=== PATIENT | female | born 1995 | race Caucasian/White ===

== ENCOUNTER → 2018-04-06 18:40 | Outpatient (CLI) | payer OTHER, SELFPAY ==
[2018-04-06 19:05] LABS: Add Manual Diff / Slide Review NO; Basophils Percent Auto 0.4 % (0-2); Eosinophils Percent Auto 3.8 % (2-4); Hematocrit 36.3 % (36-46); Hemoglobin 12.3 g/dL (12.0-16.0); Lymphocytes Percent Auto 13.2 % (25-40); Mean Corpuscular HGB Conc 33.9 % (30-36); Mean Corpuscular Hemoglobin 30.6 PG (26-34); Mean Corpuscular Volume 90.3 fL (80-100); Monocytes Percent Auto 9.8 % (3-14); Neutrophils Absolute Auto 14100 /uL (3000-5900); Neutrophils Percent Auto 72.8 % (50-75); Platelet Count 363 X10^3/uL (150-400); Red Blood Cell Count 4.02 X10^6/uL (4.0-5.2); Red Cell Distribution Width 12.2 % (11.6-14.8); White Blood Cell Count 19.4 X10^3/uL (4.5-11.0)
[2018-04-06 19:20] LABS: Monotest Negative (Negative)
== END ==
PROVIDERS: Visit Provider Physician Assistant
DX: J02.9 Acute pharyngitis, unspecified (principal)
CPT/HCPCS: 36415; 85025; 86318

== ENCOUNTER → 2018-04-18 11:31 | Outpatient (CLI) | payer OTHER, SELFPAY ==
--- NOTE | 2018-04-18 11:41 | DI.RAD.S_ITS ---
PROCEDURE: XR SOFT TISSUE NECK INDICATIONS: sore throat resistant to normal abx TECHNIQUE: 2 views of the neck were acquired. COMPARISON: None. FINDINGS: Airway: The airway appears patent. Soft tissues: Prevertebral soft tissues are normal in thickness. The epiglottis and aryepiglottic folds appear normal. No soft tissue gas. Bones: No suspicious bony lesions. Visualized cervical spine is normally aligned. IMPRESSION: No abnormal fluid collection or soft tissue swelling is found. Dictated by: Demetri Crum M.D. on 04/18/2018 at 12:37 Approved by: Demetri Crum M.D. on 04/18/2018 at 12:40
[2018-04-18 12:10] LABS: Add Manual Diff / Slide Review NO; Basophils Percent Auto 1.3 % (0-2); Eosinophils Percent Auto 0.8 % (2-4); Hematocrit 37.3 % (36-46); Hemoglobin 12.9 g/dL (12.0-16.0); Lymphocytes Percent Auto 14.6 % (25-40); Mean Corpuscular HGB Conc 34.6 % (30-36); Mean Corpuscular Hemoglobin 30.8 PG (26-34); Mean Corpuscular Volume 88.9 fL (80-100); Monocytes Percent Auto 7.5 % (3-14); Neutrophils Absolute Auto 13400 /uL (3000-5900); Neutrophils Percent Auto 75.8 % (50-75); Platelet Count 375 X10^3/uL (150-400); Red Cell Distribution Width 12.5 % (11.6-14.8); White Blood Cell Count 17.6 X10^3/uL (4.5-11.0)
== END ==
PROVIDERS: PCP Family Medicine; Visit Provider Physician Assistant
DX: J03.00 Acute streptococcal tonsillitis, unspecified (principal); J35.01 Chronic tonsillitis; J02.9 Acute pharyngitis, unspecified
CPT/HCPCS: 36415; 70360; 85025; 87070; 87077; 87147

== ENCOUNTER → 2019-12-23 15:55 | Outpatient (CLI) | payer OTHER, SELFPAY ==
[2019-12-24 20:01] LABS: COVID19 Sendout Not Detected (Not Detect)
== END ==
PROVIDERS: PCP Physician Assistant Medical; Visit Provider Physician Assistant
DX: Z03.818 Encounter for observation for suspected exposure to other biological agents ruled out (principal)
CPT/HCPCS: 87635

== ENCOUNTER → 2020-04-18 14:07 | Outpatient (CLI) | payer OTHER, SELFPAY ==
[2020-04-18 14:47] LABS: Add Manual Diff / Slide Review NO; Basophils Absolute Auto 100 /uL (0-100); Basophils Percent Auto 0.9 % (0-2); Eosinophils Absolute Auto 300 /uL (0-450); Eosinophils Percent Auto 3.3 % (2-4); Hematocrit 36.6 % (36-46); Hemoglobin 12.5 g/dL (12.0-16.0); Lymphocytes Absolute Auto 2100 /uL (1100-4500); Lymphocytes Percent Auto 27.4 % (25-40); Mean Corpuscular HGB Conc 34.1 % (30-36); Mean Corpuscular Hemoglobin 30.3 PG (26-34); Monocytes Absolute Auto 800 /uL (0-900); Monocytes Percent Auto 10.5 % (3-14); Neutrophils Absolute Auto 4500 /uL (1500-7000); Neutrophils Percent Auto 57.9 % (50-75); Platelet Count 280 X10^3/uL (150-400); Red Blood Cell Count 4.12 X10^6/uL (4.0-5.2); Red Cell Distribution Width 12.4 % (11.6-14.8); White Blood Cell Count 7.7 X10^3/uL (4.5-11.0)
[2020-04-18 14:59] LABS: Alanine Aminotransferase 13 IU/L (<35); Albumin Globulin Ratio 1.3 (1.0-2.8); Alkaline Phosphatase 74 U/L (38-126); Aspartate Aminotransferase 20 IU/L (14-36); BUN Creatinine Ratio 15.9 (6-22); Bilirubin Total 0.3 mg/dL (0.2-1.3); Blood Urea Nitrogen 11 mg/dL (7-17); Calcium 9.1 mg/dL (8.4-10.2); Carbon Dioxide 26 mmol/L (22-32); Chloride 105 mmol/L (98-107); Estimated Glomerular Filt Rate > 60.0 mL/min (>60); Glucose 107 mg/dL (70-100); HEMOLYSIS < 15 (0-50); Potassium 3.5 mmol/L (3.4-5.1); Sodium 135 mmol/L (137-145)
== END ==
PROVIDERS: PCP Physician Assistant Medical; Referring Provider Physician Assistant Medical; Visit Provider Physician Assistant Medical
DX: M25.50 Pain in unspecified joint (principal); R53.83 Other fatigue; R11.0 Nausea
CPT/HCPCS: 36415; 80053; 85025

== ENCOUNTER → 2020-04-18 | Outpatient (CLI) | payer OTHER, SELFPAY | PROVIDERS: PCP Physician Assistant Medical; Referring Provider Internal Medicine; Visit Provider Internal Medicine | DX: Z23 Encounter for immunization (principal) | CPT/HCPCS: 90471; 90686 ==

== ENCOUNTER → 2020-06-23 09:43 | Outpatient (CLI) | payer OTHER, SELFPAY ==
[2020-06-23] MEDS: COVID-19 VACC(MODERNA-1)/PF 100 MCG/0.5 ML VIAL IM (09:53)
== END ==
PROVIDERS: PCP Registered Nurse; Visit Provider Internal Medicine
DX: Z23 Encounter for immunization (principal)
CPT/HCPCS: 0011A; 91301

== ENCOUNTER → 2020-07-01 07:10 | Outpatient (CLI) | payer OTHER, SELFPAY ==
[2020-07-01 08:27] LABS: Add Manual Diff / Slide Review NO; Basophils Absolute Auto 100 /uL (0-100); Basophils Percent Auto 0.9 % (0-2); Eosinophils Absolute Auto 200 /uL (0-450); Eosinophils Percent Auto 2.7 % (2-4); Hematocrit 38.4 % (36-46); Hemoglobin 13.1 g/dL (12.0-16.0); Lymphocytes Absolute Auto 1800 /uL (1100-4500); Lymphocytes Percent Auto 24.6 % (25-40); Mean Corpuscular HGB Conc 34.1 % (30-36); Mean Corpuscular Hemoglobin 30.4 PG (26-34); Monocytes Absolute Auto 600 /uL (0-900); Monocytes Percent Auto 8.6 % (3-14); Neutrophils Absolute Auto 4700 /uL (1500-7000); Neutrophils Percent Auto 63.2 % (50-75); Platelet Count 310 X10^3/uL (150-400); Red Blood Cell Count 4.32 X10^6/uL (4.0-5.2); Red Cell Distribution Width 12.1 % (11.6-14.8); White Blood Cell Count 7.4 X10^3/uL (4.5-11.0)
[2020-07-01 09:26] LABS: Alanine Aminotransferase 13 IU/L (<35); Albumin Globulin Ratio 1.4 (1.0-2.8); Alkaline Phosphatase 82 U/L (38-126); Aspartate Aminotransferase 21 IU/L (14-36); Bilirubin Total 0.2 mg/dL (0.2-1.3); Blood Urea Nitrogen 12 mg/dL (7-17); Carbon Dioxide 25 mmol/L (22-32); Chloride 106 mmol/L (98-107); Cholesterol 181 mg/dL (140-199); Estimated Glomerular Filt Rate > 60.0 mL/min (>60); Globulin 2.9 g/dL (1.7-4.1); Glucose 89 mg/dL (70-100); HDL Cholesterol 63 mg/dL (40-60); HEMOLYSIS < 15 (0-50); LDL Cholesterol Calculated 96 mg/dL (<100); Potassium 4.1 mmol/L (3.4-5.1); Sodium 138 mmol/L (137-145); Total Protein 6.9 g/dL (6.3-8.2); Triglycerides 111 mg/dL (35-150)
[2020-07-01 09:37] LABS: Free T4, Direct Thyroxine 1.08 ng/dL (0.78-2.19)
== END ==
PROVIDERS: PCP Registered Nurse; Referring Provider Registered Nurse; Visit Provider Registered Nurse
DX: Z00.00 Encounter for general adult medical examination without abnormal findings (principal); R53.83 Other fatigue; Z83.49 Family history of other endocrine, nutritional and metabolic diseases
CPT/HCPCS: 36415; 80053; 80061; 84439; 84443; 85025

== ENCOUNTER → 2020-07-20 09:52 | Outpatient (CLI) | payer OTHER, SELFPAY ==
[2020-07-20] MEDS: COVID-19 VACC #2, MRNA(MOD) 100 MCG/0.5 ML VIAL IM (09:54)
== END ==
PROVIDERS: PCP Registered Nurse; Visit Provider Internal Medicine
DX: Z23 Encounter for immunization (principal)
CPT/HCPCS: 0012A; 91301

== ENCOUNTER → 2021-02-22 09:42 | Outpatient (CLI) | payer OTHER, SELFPAY ==
[2021-02-22 10:57] LABS: COVID19 -Nasal RAPID Negative (Negative)
== END ==
PROVIDERS: PCP Family Medicine; Visit Provider Physician Assistant
DX: Z20.822 Contact with and (suspected) exposure to COVID-19 (principal)
CPT/HCPCS: 87635

== ENCOUNTER → 2021-05-19 12:47 | Outpatient (CLI) | payer OTHER, SELFPAY ==
[2021-05-19 14:16] LABS: Progesterone, Total 7.45 ng/mL
== END ==
PROVIDERS: PCP Family Medicine; Referring Provider Specialist; Visit Provider Specialist
DX: N92.6 Irregular menstruation, unspecified (principal)
CPT/HCPCS: 36415; 84144

== ENCOUNTER → 2021-06-20 17:03 | Outpatient (CLI) | payer OTHER, SELFPAY ==
[2021-06-20 18:40] LABS: Progesterone, Total 7.98 ng/mL
== END ==
PROVIDERS: PCP Family Medicine; Referring Provider Specialist; Visit Provider Specialist
DX: N92.6 Irregular menstruation, unspecified (principal)
CPT/HCPCS: 36415; 84144

== ENCOUNTER → 2021-09-01 06:57 | Outpatient (CLI) | payer OTHER, SELFPAY ==
[2021-09-01 08:51] LABS: Glucose Fasting 82 mg/dL (70-100)
[2021-09-01 09:13] LABS: Glucose Tol Interpretation INTERPRETATION
[2021-09-01 09:18] LABS: Glucose 1 Hour 105 mg/dL (70-170)
[2021-09-01 10:14] LABS: Glucose 2 Hour 123 mg/dL (70-140)
[2021-09-03 07:53] LABS: Insulin Level Total 11.3 uIU/mL (2.6-24.9)
== END ==
PROVIDERS: PCP Family Medicine; Referring Provider Specialist; Visit Provider Specialist
DX: E66.9 Obesity, unspecified (principal); N92.6 Irregular menstruation, unspecified
CPT/HCPCS: 36415; 82951; 82952; 83525

== ENCOUNTER → 2022-10-12 13:02 | Outpatient (CLI) | payer OTHER, SELFPAY | PROVIDERS: PCP Physician Assistant; Referring Provider Obstetrics & Gynecology; Visit Provider Obstetrics & Gynecology | DX: Z34.90 Encounter for supervision of normal pregnancy, unspecified, unspecified trimester (principal) | CPT/HCPCS: 36415; 84702 ==

== ENCOUNTER → 2022-10-22 11:13 | Outpatient (CLI) | payer OTHER, SELFPAY ==
--- NOTE | 2022-10-22 11:14 | DI.US.S_ITS ---
PROCEDURE: US OB <= 14 WEEKS FETUS INDICATIONS: DATING OUTSIDE/PRIOR DATING DATA: Last menstrual period (LMP): Unknown. LMP-based estimated date of delivery (MERVIN): Not applicable. First dating scan (date and location): 10/22/22. Estimated date of delivery (MERVIN) from first dating scan: 06/19/23. TECHNIQUE: Real-time scanning was performed of the fetus and maternal pelvic organs, with image documentation. Endovaginal scanning was also performed to better visualize the fetus and maternal ovaries. COMPARISON: None. FINDINGS: Embryo: An intrauterine is present including a single pole with an average crown-rump length of 2.3 mm corresponding to a five week, five day, plus or minus four days gestation. There is detectable cardiac activity in the fetus at a rate of 107 beats per minute. A normal yolk sac is present. Maternal organs: The cervix is closed. Intrauterine gestational sac is fundal and endometrial. Inactive perigestational hemorrhage along the anterior inferior aspect encompasses about 1/3 of the sac circumference. The mean gestational sac diameter is 1.1 cm which corresponds to a five week six day gestation. IMPRESSION: 1. Living pole with a gestational age of five weeks five days and sonographic MERVIN 06/19/23. 2. Closed maternal cervix. 3. Inactive perigestational hemorrhage/implantation bleed. We strive to produce accurate, complete, and clear reports of imaging services. To assist us in improving patient care, this report was composed using standard report templates and voice recognition software. Therefore, it may contain abnormal punctuation, insertions and/or omissions. Occasional wrong-word or sound-alike substitutions may occur. Though we review the report and make efforts to correct it, we do recommend that the report be read carefully in proper context to recognize any text inaccuracies. Dictated by: Leilani Brian M.D. on 10/22/2022 at 17:31 Approved by: Leilani Brian M.D. on 10/22/2022 at 17:35
== END ==
PROVIDERS: PCP Physician Assistant; Referring Provider Obstetrics & Gynecology; Visit Provider Obstetrics & Gynecology
DX: O26.21 Pregnancy care for patient with recurrent pregnancy loss, first trimester (principal); Z3A.01 Less than 8 weeks gestation of pregnancy
CPT/HCPCS: 76801; 76830

== ENCOUNTER → 2022-11-20 11:02 | Outpatient (CLI) | payer OTHER, SELFPAY ==
[2022-11-20 11:50] LABS: Add Manual Diff / Slide Review NO; Basophils Absolute Auto 100 /uL (0-100); Basophils Percent Auto 0.7 % (0-2); Eosinophils Absolute Auto 200 /uL (0-450); Eosinophils Percent Auto 1.7 % (2-4); Hematocrit 37.5 % (36-46); Hemoglobin 13.1 g/dL (12.0-16.0); Lymphocytes Absolute Auto 1600 /uL (1100-4500); Lymphocytes Percent Auto 14.9 % (25-40); Mean Corpuscular Hemoglobin 31.6 PG (26-34); Mean Corpuscular Volume 90.2 fL (80-100); Monocytes Absolute Auto 600 /uL (0-900); Monocytes Percent Auto 5.8 % (3-14); Neutrophils Absolute Auto 8200 /uL (1500-7000); Neutrophils Percent Auto 76.9 % (50-75); Platelet Count 286 X10^3/uL (150-400); Red Blood Cell Count 4.15 X10^6/uL (4.0-5.2); Red Cell Distribution Width 12.4 % (11.6-14.8); White Blood Cell Count 10.7 X10^3/uL (4.5-11.0)
[2022-11-20 12:52] LABS: Hepatitis B Surface Antigen NEGATIVE s/c (NEGATIVE); Rubella Antibody IgG 19.2 IU/mL (>15)
[2022-11-20 13:12] LABS: HIV 1 & 2 Ab/Ag 4th Gen Combo NEGATIVE (NEGATIVE); Hep C Virus Ab w/Reflex Quant NEGATIVE s/c (NEGATIVE)
[2022-11-20 13:24] LABS: Free T4, Direct Thyroxine 1.07 ng/dL (0.78-2.19)
[2022-11-20 13:38] LABS: Thyroid Stimulating Hormone 1.12 uIU/mL (0.47-4.68)
[2022-11-21 06:19] LABS: RPR Screen Non Reactive (Non Reactive)
[2022-11-21 11:37] LABS: Varicella IgG Antibody <135 index (Immune >165)
== END ==
PROVIDERS: PCP Physician Assistant; Referring Provider Obstetrics & Gynecology; Visit Provider Obstetrics & Gynecology
DX: Z34.81 Encounter for supervision of other normal pregnancy, first trimester (principal); E05.90 Thyrotoxicosis, unspecified without thyrotoxic crisis or storm
CPT/HCPCS: 36415; 80055; 84439; 84443; 86787; 86803; 86850; 86900; 86901; 87086; 87389

== ENCOUNTER → 2022-12-25 17:16 | Outpatient (CLI) | payer OTHER, SELFPAY ==
[2022-12-25 18:23] LABS: Appearance Urine UA CLEAR; Bilirubin Urine UA NEGATIVE (NEGATIVE); Color Urine UA YELLOW; Glucose Urine UA NEGATIVE (Negative); Ketones Urine UA NEGATIVE (NEGATIVE); Leukocyte Esterase Urine UA NEGATIVE (NEGATIVE); Nitrite Urine UA NEGATIVE (Negative); Occult Blood Urine UA NEGATIVE (Negative); Protein Urine UA NEGATIVE (Negative); Specific Gravity Urine UA <=1.005 (1.000-1.035); Urobilinogen Urine UA 0.2 E.U./dL (0.2)
[2022-12-25 18:38] LABS: pH Urine UA 6.5 (4.5-8.0)
[2022-12-25 18:39] LABS: Bacteria Urine None Seen; Culture Indicated Urine Cult Not Indicated; RBC Urine 0-1/HPF (0-5/HPF); Squamous Epithelial Cell Urine 0-1 /HPF (0-5/HPF); WBC Urine 0-1/HPF (0-5/HPF)
== END ==
PROVIDERS: PCP Physician Assistant; Referring Provider Obstetrics & Gynecology; Visit Provider Obstetrics & Gynecology
DX: O26.899 Other specified pregnancy related conditions, unspecified trimester (principal); R10.2 Pelvic and perineal pain
CPT/HCPCS: 81001

== ENCOUNTER → 2023-01-04 15:27 | Outpatient (CLI) | payer OTHER, SELFPAY ==
[2023-01-07 16:29] LABS: AFP Value 34.1 ng/mL (.); Gest Age on Col Date 16.4 weeks (.); Insulin Dep Diabetes No (.); OSBR Risk 1IN 7137 (.); Results Report (.); Test Results *Screen Negative* (.)
== END ==
PROVIDERS: PCP Physician Assistant; Referring Provider Obstetrics & Gynecology; Visit Provider Obstetrics & Gynecology
DX: Z34.82 Encounter for supervision of other normal pregnancy, second trimester (principal); Z3A.16 16 weeks gestation of pregnancy; E05.90 Thyrotoxicosis, unspecified without thyrotoxic crisis or storm
CPT/HCPCS: 36415; 82105; 84443

== ENCOUNTER → 2023-01-29 14:11 | Outpatient (CLI) | payer OTHER, SELFPAY ==
--- NOTE | 2023-01-29 14:13 | DI.US.S_ITS ---
PROCEDURE: US OB >= 14 WEEKS FETUS INDICATIONS: Anatomy Scan OUTSIDE/PRIOR DATING DATA: Last menstrual period (LMP): Unknown First dating scan (date and location): 10/22/2022. Estimated date of delivery (MERVIN) from first dating scan: 06/19/2023. TECHNIQUE: Real-time scanning was performed of the fetus, with image documentation and biometric measurements. COMPARISON: [facility], , OB >= 14 WEEKS FETUS, 12/05/2022, 11:33. [facility], , OB >= 14 WEEKS FETUS, 12/26/2022, 16:49. FINDINGS: General: A single living intrauterine gestation is present. Presentation: Breech. Placenta: Placental position is posterior, fundal , without previa. Amniotic fluid index: 11.6 cm, normal range is 5-24 cm. heart rate: 149 beats per minute. Maternal cervical canal: 4.2 cm long. Normal lower limit is 2.5 cm. biometrics: Biparietal diameter: 4.6 cm, 19 weeks and 5 days Head circumference: 17.1 cm, 19 weeks and 5 days Abdominal circumference: 14.8 cm, 20 weeks Femur length: 3.2 cm, 20 weeks Clinically estimated gestational age: 19 weeks and 6 days Composite gestational age from present scan: 19 weeks and 6 days Estimated weight and percentile: 329 g, 52 percentile. Anatomic survey: Neuro: Ventricles are non-dilated at less than 10 mm. Cisterna magna is normal at 3-11 mm. Cerebellum is normal in size and morphology. Nuchal skin fold: Normal at less than 6 mm between 14-21 weeks gestational age. Face: Nose and lips, facial profile are normal. Spine: No evidence for spina bifida. Heart: Not well seen Diaphragm: Chest and diaphragm are not well seen. Stomach: Left-sided stomach is present. Kidneys: No hydronephrosis. Normal is less than 5 mm in 2nd trimester, less than 7 mm in 3rd trimester. Cord: 3-vessel cord has orthotopic insertion. Bladder: Normal in size. Extremities: All 4 extremities identified. IMPRESSION: Living intrauterine gestation. Biometry is concordant, at the 52 percentile. Heart and chest/diaphragm are not well seen. Follow-up recommended. Dictated by: Heron Bell M.D. on 01/29/2023 at 15:58 Approved by: Heron Bell M.D. on 01/29/2023 at 16:03
== END ==
PROVIDERS: PCP Physician Assistant; Referring Provider Obstetrics & Gynecology; Visit Provider Obstetrics & Gynecology
DX: Z36.89 Encounter for other specified antenatal screening (principal); Z3A.19 19 weeks gestation of pregnancy
CPT/HCPCS: 76811

== ENCOUNTER 2023-02-20 11:02 | Outpatient (CLI) | payer OTHER, SELFPAY ==
--- NOTE | 2023-02-20 11:51 | PM.OBTRLD ---
Visit Information Visit Information Date of evaluation: 02/20/23 Primary OB Provider: Blanca Johnson On-call OB Provider: Daniella Lucas Reason for Evaluation: Yes rupture of membranes Comments/Additional reasons for admission: Several days of liquid discharge with odor Vital Signs Vital Signs: Temperature 36.4?, blood pressure 118/62, pulse of 90 PFSH Medical History (Updated 02/20/23 @ 11:54 by Daniella Lucas MD) Anxiety and depression Contraception management Erythromelalgia Family history of thyroid disease Fibromyalgia IBS (irritable bowel syndrome) Migraines Obesity (BMI 30-39.9) Surgical History Anesthesia History of third molar tooth extraction (~2009) History of tonsillectomy (~2017) Family History (Updated 10/15/22 @ 15:48 by Malou Landry RN) Mother Murmur Mitral valve prolapse Charanjit's thyroiditis Sister Metabolic syndrome Grandmother Breast cancer Lung cancer Grandmother Breast cancer Grandfather Breast cancer Sister Adriana-Danlos syndrome Brother Bipolar disorder Father Alcoholism Family estrangement Social History marital status: number of children: 0 household members: spouse lives independently: Yes caregiver/support person: No housing: house pets and animals: Yes (dog, rabbit) education level: college ([employer] degree) occupational status: employed (school nurse) current occupational exposures/hazards: No special valdez needs: No travel history: over 6 months ago seatbelt use: always helmet use: Yes water heater temp set < 120 deg: Yes working smoke detector in home: Yes fire extinguisher in home: Yes carbon monox detector in home: Yes firearms in home: No do you feel safe at home: Yes Smoking Status: Never smoker second hand exposure: No alcohol intake: former (Occasionally when not ) substance use type: does not use during the past year weight has: decreased > 10 lbs well-balanced diet: daily or most days daily servings fruits/ve or more times/day caffeine: Yes (aware of 200mg limit) Type(s) of exercise: aerobic, weight lifting and running frequency: 5-6 times per week Review of Systems Review of Systems Narrative: Patient with several days increased wetness comes in for evaluation for possible rupture membranes. No contractions. No bleeding. No pain. Good movement. Patient had affirm testing in office and presents to OB to rule out rupture membranes Evaluation Evaluation Baseline heart rate: 150 Variability: Moderate (11-25) monitor accelerations: Present Monitor Decelerations: Absent Contraction Frequency (minutes): 0 Status: Category l Non-invasive Membranes Rupture Test: negative Diagnosis, Plan/Disposition Final Diagnosis (1) Vaginal discharge during in second trimester: Status: Acute (2) 23 weeks gestation of : Status: Acute Plan/Disposition Plan: Patient comes in for reassurance that she did not have rupture membranes. AmniSure is negative. monitor strip looks great. Patient discharged home to follow up at her routine OB visit. Affirm test done in the office and treatment and follow-up based on those results. OB Disposition: home
== END 2023-02-20 12:05 | disposition home or self-care (01) ==
LOC: LABOR 11:26 → OB 02-25 11:59
PROVIDERS: PCP Physician Assistant; Referring Provider Obstetrics & Gynecology; Visit Provider Obstetrics & Gynecology
DX: O36.8120 Decreased fetal movements, second trimester, not applicable or unspecified (principal); O26.892 Other specified pregnancy related conditions, second trimester; N89.8 Other specified noninflammatory disorders of vagina; Z3A.23 23 weeks gestation of pregnancy
CPT/HCPCS: 59025; 84112; 87480; 87510; 87660; G0378; G0379

== ENCOUNTER → 2023-02-20 14:50 | Outpatient (ROUT) | payer OTHER, SELFPAY ==
[2023-02-21 13:36] LABS: Candida species Negative (Negative); Gardnerella vaginalis Negative (Negative); Trichomoas vaginalis Negative (Negative)
== END ==
PROVIDERS: PCP Physician Assistant; Visit Provider Specialist
DX: Z34.92 Encounter for supervision of normal pregnancy, unspecified, second trimester (principal); N89.8 Other specified noninflammatory disorders of vagina
CPT/HCPCS: 87480; 87510; 87660

== ENCOUNTER → 2023-03-05 15:33 | Outpatient (CLI) | payer OTHER, SELFPAY ==
--- NOTE | 2023-03-05 | DI.US.S_ITS ---
PROCEDURE: US OB FOLLOW UP INDICATIONS: FOLLOW UP ANATOMY OUTSIDE/PRIOR DATING DATA: Last menstrual period (LMP): Unknown. LMP-based estimated date of delivery (MERVIN): Unknown. First dating scan (date and location): 10/22/2022. Estimated date of delivery (MERVIN) from first dating scan: 06/19/2023. The calculations are made using the ultrasound MERVIN of 06/19/2023. TECHNIQUE: Real-time scanning was performed of the fetus, with image documentation and biometric measurements. Endovaginal scanning: Not performed COMPARISON: [facility], , US OB >= 14 WEEKS FETUS, 01/29/2023, 14:25. FINDINGS: General: A single living intrauterine gestation is present. Presentation: Breech. Placenta: Placental position is posterior fundal , without previa. Amniotic fluid index: 14.9 cm, normal range is 5-24 cm. Single deepest vertical pocket is 4.3 cm. heart rate: 141 beats per minute. Maternal cervical canal: 4.0 cm long. Normal lower limit is 2.5 cm. biometrics: Biparietal diameter: 6.7 cm, 25 weeks and 5 days Head circumference: 23.7 cm, 25 weeks and 5 days Abdominal circumference: 21.6 cm, 26 weeks and 0 days Femur length: 4.5 cm, 24 weeks and 5 days Clinically estimated gestational age: 24 weeks and 6 days Composite gestational age from present scan: 25 weeks and 4 days Estimated weight and percentile: 821 g, 71st percentile Other: Limited anatomic scan demonstrates normal 4 chamber view of the heart and normal appearance of the chest and diaphragm. The outflow tracts are not well seen secondary to positioning. IMPRESSION: 1. Single live intrauterine consistent with 25 weeks and 4 days. 2. Limited anatomic scan demonstrates normal four-chamber heart and normal appearance of the chest and of the diaphragm. The outflow tracts are not well seen secondary to positioning. We strive to produce accurate, complete, and clear reports of imaging services. To assist us in improving patient care, this report was composed using standard report templates and voice recognition software. Therefore, it may contain abnormal punctuation, insertions and/or omissions. Occasional wrong-word or sound-alike substitutions may occur. Though we review the report and make efforts to correct it, we do recommend that the report be read carefully in proper context to recognize any text inaccuracies. Dictated by: Srikanth Giron M.D. on 03/06/2023 at 13:25 Approved by: Srikanth Giron M.D. on 03/06/2023 at 13:29
== END ==
PROVIDERS: PCP Physician Assistant; Referring Provider Specialist; Visit Provider Specialist
DX: Z36.2 Encounter for other antenatal screening follow-up (principal); Z3A.25 25 weeks gestation of pregnancy
CPT/HCPCS: 76816

== ENCOUNTER → 2023-03-14 08:29 | Outpatient (CLI) | payer OTHER, SELFPAY ==
[2023-03-14 10:13] LABS: Hematocrit 34.4 % (36-46); Hemoglobin 11.9 g/dL (12.0-16.0)
[2023-03-14 11:00] LABS: GTT (PREG) 1 Hour PP 50gm Dose 131 mg/dL (76-139)
[2023-03-14 11:17] LABS: Free T4, Direct Thyroxine 0.91 ng/dL (0.78-2.19)
[2023-03-14 11:31] LABS: Thyroid Stimulating Hormone 1.07 uIU/mL (0.47-4.68)
== END ==
PROVIDERS: Specialist; PCP Physician Assistant; Referring Provider Obstetrics & Gynecology; Visit Provider Obstetrics & Gynecology
DX: Z34.82 Encounter for supervision of other normal pregnancy, second trimester (principal); Z34.92 Encounter for supervision of normal pregnancy, unspecified, second trimester; Z3A.26 26 weeks gestation of pregnancy
CPT/HCPCS: 82950; 84439; 84443; 85014; 85018; 86850

== ENCOUNTER 2023-04-30 09:22 | Outpatient (CLI) | payer OTHER, SELFPAY | END 2023-04-30 10:10 | disposition home or self-care (01) | LOC: LABOR 10:09 → OB 05-03 13:51 | PROVIDERS: PCP Physician Assistant; Referring Provider Obstetrics & Gynecology; Visit Provider Obstetrics & Gynecology | DX: O26.23 Pregnancy care for patient with recurrent pregnancy loss, third trimester (principal); Z3A.33 33 weeks gestation of pregnancy | CPT/HCPCS: 59025; G0378; G0379 ==

== ENCOUNTER 2023-05-06 17:20 | Outpatient (CLI) | payer OTHER, SELFPAY ==
[2023-05-06 18:14] LABS: Appearance Urine UA CLEAR; Bilirubin Urine UA NEGATIVE (NEGATIVE); Color Urine UA YELLOW; Glucose Urine UA NEGATIVE (Negative); Ketones Urine UA NEGATIVE (NEGATIVE); Leukocyte Esterase Urine UA NEGATIVE (NEGATIVE); Nitrite Urine UA NEGATIVE (Negative); Occult Blood Urine UA NEGATIVE (Negative); Protein Urine UA NEGATIVE (Negative); Specific Gravity Urine UA <=1.005 (1.000-1.035); Urobilinogen Urine UA 0.2 E.U./dL (0.2)
[2023-05-06 18:17] LABS: pH Urine UA 6.5 (4.5-8.0)
[2023-05-06 18:53] LABS: Bacteria Urine None Seen; Culture Indicated Urine Cult Not Indicated; RBC Urine None Seen (0-5/HPF); Squamous Epithelial Cell Urine 0-1 /HPF (0-5/HPF); WBC Urine None Seen (0-5/HPF)
== END 2023-05-06 19:16 | disposition home or self-care (01) ==
LOC: OB 05-07 13:09
PROVIDERS: PCP Physician Assistant; Referring Provider Obstetrics & Gynecology; Visit Provider Obstetrics & Gynecology
DX: O26.893 Other specified pregnancy related conditions, third trimester (principal); M54.9 Dorsalgia, unspecified; R10.2 Pelvic and perineal pain; R10.9 Unspecified abdominal pain; Z3A.34 34 weeks gestation of pregnancy
CPT/HCPCS: 59025; 81001; G0378; G0379

== ENCOUNTER 2023-05-14 13:02 | Outpatient (CLI) | payer OTHER, SELFPAY | END 2023-05-14 13:36 | disposition home or self-care (01) | LOC: LABOR 14:07 → OB 05-20 06:38 | PROVIDERS: PCP Physician Assistant; Referring Provider Obstetrics & Gynecology; Visit Provider Obstetrics & Gynecology | DX: O26.23 Pregnancy care for patient with recurrent pregnancy loss, third trimester (principal); Z3A.35 35 weeks gestation of pregnancy | CPT/HCPCS: 59025; G0378; G0379 ==

== ENCOUNTER 2023-05-21 09:29 | Outpatient (CLI) | payer OTHER, SELFPAY | END 2023-05-21 10:01 | disposition home or self-care (01) | LOC: LABOR 10:11 → OB 05-27 11:59 | PROVIDERS: PCP Physician Assistant; Referring Provider Obstetrics & Gynecology; Visit Provider Obstetrics & Gynecology | DX: O99.113 Other diseases of the blood and blood-forming organs and certain disorders involving the immune mechanism complicating pregnancy, third trimester (principal); D68.61 Antiphospholipid syndrome; Z3A.36 36 weeks gestation of pregnancy | CPT/HCPCS: 59025; G0378; G0379 ==

== ENCOUNTER 2023-05-28 09:39 | Outpatient (CLI) | payer OTHER, SELFPAY ==
[2023-05-28] MEDS: ACETAMINOPHEN 325 MG TABLET 975 MG PO (10:39)
== END 2023-05-28 10:45 | disposition home or self-care (01) ==
LOC: LABOR 10:08 → OB 06-03 11:52
PROVIDERS: PCP Physician Assistant; Referring Provider Obstetrics & Gynecology; Visit Provider Obstetrics & Gynecology
DX: O47.1 False labor at or after 37 completed weeks of gestation (principal); Z3A.37 37 weeks gestation of pregnancy
CPT/HCPCS: 59025; 87653; G0378; G0379

== ENCOUNTER → 2023-05-28 09:59 | Outpatient (CLI) | payer OTHER, SELFPAY ==
[2023-05-29 14:40] LABS: Strep Grp B PCR NEG for Grp B Strep
== END ==
PROVIDERS: PCP Physician Assistant; Visit Provider Obstetrics & Gynecology
DX: Z34.83 Encounter for supervision of other normal pregnancy, third trimester (principal); Z3A.36 36 weeks gestation of pregnancy
CPT/HCPCS: 87653

== ENCOUNTER 2023-05-29 18:19 | Outpatient (CLI) | payer OTHER, SELFPAY | END 2023-05-29 19:19 | disposition home or self-care (01) | LOC: OB 06-03 11:54 | PROVIDERS: PCP Physician Assistant; Referring Provider Obstetrics & Gynecology; Visit Provider Obstetrics & Gynecology | DX: Z03.71 Encounter for suspected problem with amniotic cavity and membrane ruled out (principal); O47.1 False labor at or after 37 completed weeks of gestation; Z3A.37 37 weeks gestation of pregnancy | CPT/HCPCS: 59025; 84112; G0378; G0379 ==

== ENCOUNTER 2023-06-04 08:46 | Outpatient (CLI) | payer OTHER, SELFPAY | END 2023-06-04 09:21 | disposition home or self-care (01) | LOC: LABOR 09:05 → OB 06-11 06:49 | PROVIDERS: PCP Physician Assistant; Referring Provider Obstetrics & Gynecology; Visit Provider Obstetrics & Gynecology | DX: Z36.9 Encounter for antenatal screening, unspecified (principal) | CPT/HCPCS: 59025; G0378; G0379 ==

== ENCOUNTER 2023-06-05 19:27 | Inpatient (IN) | payer OTHER, SELFPAY ==
[2023-06-05 20:24] LABS: Add Manual Diff / Slide Review NO; Basophils Absolute Auto 100 /uL (0-100); Basophils Percent Auto 0.6 % (0-2); Eosinophils Absolute Auto 100 /uL (0-450); Eosinophils Percent Auto 0.7 % (2-4); Hematocrit 34.6 % (36-46); Hemoglobin 12.1 g/dL (12.0-16.0); Lymphocytes Absolute Auto 2000 /uL (1100-4500); Lymphocytes Percent Auto 15.8 % (25-40); Mean Corpuscular Hemoglobin 31.1 PG (26-34); Mean Corpuscular Volume 88.9 fL (80-100); Monocytes Absolute Auto 1000 /uL (0-900); Monocytes Percent Auto 7.7 % (3-14); Neutrophils Absolute Auto 9400 /uL (1500-7000); Neutrophils Percent Auto 75.2 % (50-75); Platelet Count 228 X10^3/uL (150-400); Red Blood Cell Count 3.89 X10^6/uL (4.0-5.2); Red Cell Distribution Width 14.1 % (11.6-14.8); White Blood Cell Count 12.5 X10^3/uL (4.5-11.0)
[2023-06-05] MEDS: miSOPROStoL 25 MCG TABLET PO (20:34)
[2023-06-05] MEDS: ZOLPIDEM 5 MG TABLET PO (21:09)
[2023-06-05 22:12] VITALS: BP 132/77
[2023-06-06] MEDS: miSOPROStoL 25 MCG TABLET PO ×2 (00:32→04:54)
[2023-06-06] MEDS: CALCIUM CARBONATE 500 MG TAB 1000 MG PO ×2 (05:28→17:07)
[2023-06-06] MEDS: ONDANSETRON 4 MG/2 ML INJ IV ×3 (05:57→19:11)
--- NOTE | 2023-06-06 07:46 | P.HPOB_ITS ---
OB HPI Date/Time Date of admission: 06/06/23 Date Patient Seen: 06/06/23 Time Patient Seen: 07:47 History of Present Condition Chief complaint: observaiton of labor MERVIN Calculator 2 Estimated Delivery Date Method Current WG Current Estimate 06/17/23 Conception 38w 3d Other Estimates 06/18/23 LMP (Certain) 38w 2d Estimated Gestational Age (weeks): 38+3 : 4 Para: 0 care: good care, initiated at week # (8), number of visits (3) and pounds weight gain (14) Dating criteria OB: LMP confirmed by 1st trimester US Ultrasounds: normal 1st trimester US and normal mid trimester US Obstetrical complications: autoimmune disease (APA syndrome) Medical complications OB: none Indications Indication for induction OB: medical complication (APA syndrome) Preadmission Labs Last OB Lab Results: 2 Blood Type O Positive 06/05/23 20:11 Antibody Screen Negative 06/05/23 20:11 Hematocrit 34.6 % (36-46) L 06/05/23 20:11 Hemoglobin 12.1 g/dL (12.0-16.0) 06/05/23 20:11 Hepatitis B Surface Antigen Negative s/c (NEGATIVE) 11/20/22 11 :16 Hepatitis C Antibody Negative s/c (NEGATIVE) 11/20/22 11:16 Rubella Antibody 19.2 IU/mL (>15) 11/20/22 11:16 Varicella-Zoster IgG Antibody <135 index (Immune >165) L 11:16 Glucose 1 Hour 131 mg/dL (76-139) 03/14/23 09:51 Group B Streptococcus (PCR) Neg for grp b strep 05/28/23 09:59 -: Chlamydia screen: negative, Gonorrhea screen: negative and Urine: negative -: PAP smear: Normal Genetic Screens: Cell-free DNA: Normal and Alpha-fetoprotein: Normal External Labs -: Urine: negative Prior (ies) Past Pregnancies Del. Date GA/Weeks Labor Lgth Wt Sex Route Outcome Anesthesia Place Delv Breastfeed Preg Comp Name 12/15/21 4+ spontaneous 03/17/22 8 spontaneous 05/17/22 4+ spontaneous Delivery Date: 03/17/22 Last Updated by: Malou Landry RN missed AB, stopped ~6 wk Evaluation Evaluation Baseline heart rate: 135 Variability: Moderate (11-25) monitor accelerations: Present Monitor Decelerations: Absent Contraction Frequency (minutes): 4 Uterine Contraction Intensity: Mild Status: Category l Dilation (cm): 1 Effacement (%): 75 station: -3 Position of cervix: mid Consistency: medium [facility] Medical History (Updated 05/12/23 @ 14:41 by Blanca Johnson MD) Erythromelalgia Migraines Obesity (BMI 30-39.9) IBS (irritable bowel syndrome) Fibromyalgia Anxiety and depression Family history of thyroid disease Surgical History Anesthesia History of tonsillectomy (~2017) History of third molar tooth extraction (~2009) Family History (Updated 10/15/22 @ 15:48 by Malou Landry RN) Mother Murmur Mitral valve prolapse Charanjit's thyroiditis Sister Metabolic syndrome Grandmother Breast cancer Lung cancer Grandmother Breast cancer Grandfather Breast cancer Sister Adriana-Danlos syndrome Brother Bipolar disorder Father Alcoholism Family estrangement Social History marital status: number of children: 0 household members: spouse lives independently: Yes caregiver/support person: No housing: house pets and animals: Yes (dog, rabbit) education level: college ([employer] degree) occupational status: employed (school nurse) current occupational exposures/hazards: No special valdez needs: No travel history: over 6 months ago seatbelt use: always helmet use: Yes water heater temp set < 120 deg: Yes working smoke detector in home: Yes fire extinguisher in home: Yes carbon monox detector in home: Yes firearms in home: No do you feel safe at home: Yes Smoking Status: Never smoker second hand exposure: No alcohol intake: former (Occasionally when not ) substance use type: does not use during the past year weight has: decreased > 10 lbs well-balanced diet: daily or most days daily servings fruits/ve or more times/day caffeine: Yes (aware of 200mg limit) Type(s) of exercise: aerobic, weight lifting and running frequency: 5-6 times per week Meds Home Medications and Allergies Home Medications Medication Instructions Recorded Confirmed Type prenat.vits,rom,gob-asha-usejw 1 tab PO DAILY 04/18/21 06/05/23 History sertraline 50 mg tablet (Zoloft) 50 mg PO DAILY #90 tabs 06/22/22 06/05/23 Rx omega-3 360 jj-pes-atj-fish oil 1 cap PO DAILY 10/15/22 06/05/23 History 1,200 mg capsule,delayed release (Fish Oil) pantoprazole 40 mg tablet,delayed 40 mg PO DAILY #30 tabs 11/07/22 06/05/23 Rx release (Protonix) syringe with needle, safety 1 mL #100 ea 05/16/23 06/04/23 Rx 28 gauge x 1/2 (Easy Touch Tuberculin Fliplock) levothyroxine 25 mcg tablet 25 mcg PO DAILY #90 tabs 05/22/23 06/05/23 Rx Allergies Allergy/AdvReac Type Severity Reaction Status Date / Time latex Allergy Mild swelling Verified 06/04/23 08:17 and hives adhesive Allergy Unknown rash and Verified 06/04/23 08:17 eats skin into a sore sumatriptan [From Imitrex] AdvReac Unknown Verified 06/04/23 08:17 OB Exam Narrative Exam Narrative: Generally: Patient on hands and knees, uncomfortable with contractions with low back pain Lungs: CTA bilat CV: RRR Fundal height: 38 cm Estimated weight: 7# Ext: 1+ edema Objective Labs 06/05/23 20:11 Labs: Laboratory Results - last 24 hr 06/05/23 20:11 WBC 12.5 H RBC 3.89 L Hgb 12.1 Hct 34.6 L MCV 88.9 MCH 31.1 MCHC 35.0 RDW 14.1 Plt Count 228 Neut % (Auto) 75.2 H Lymph % (Auto) 15.8 L [place] % (Auto) 7.7 Eos % (Auto) 0.7 L Baso % (Auto) 0.6 Neut # (Auto) 9400 H Lymph # (Auto) 2000 [place] # (Auto) 1000 H Eos # (Auto) 100 Baso # (Auto) 100 Blood Type O Positive Antibody Screen Negative Assessment and Plan Assessment and Plan Assessment and Plan narrative: Assessment: 27-year-old 4 para 0 at 38-,3/7 weeks gestation with antiphospholipid antibody syndrome Status post 3 doses of Cytotec Unfavorable cervix Plan: Recheck cervix at 9:00 a.m. and decide on further ripening, Triana, or Pitocin Time Spent with Patient Total time spent with greater than 50% in coordination of care (as documented) at patient's floor/unit and/or counseling patient:: 15-24 minutes
[2023-06-06] MEDS: LEVOTHYROXINE 25 MCG TABLET PO (08:05)
[2023-06-06] MEDS: SERTRALINE 50 MG TABLET 100 MG PO (08:05)
--- NOTE | 2023-06-06 10:16 | PM.OBPNLAB ---
Date/Time Date Patient Seen: 06/06/23 Time Patient Seen: 09:30 Pain Control Pain control: tolerating well Comments: Less back pain Pelvic Exam Dilation (cm): 1 Effacement (%): 75 station: -3 Contractions Pitocin rate (mU/min): 140 Contraction frequency (min): 2 Contraction pattern: Regular Contraction intensity: Moderate Status status: Category l Heart Rate Baseline: 140 Monitor Accelerations: Present Monitor Decelerations: Absent Monitor Variability: Moderate Assessment and Plan Assessment: other Plan: continuous present management Comments: Reassess at 1130pm ?? [place]
[2023-06-06] MEDS: fentaNYL 100 MCG/2 ML INJ IV ×2 (10:30→14:52)
[2023-06-06] MEDS: LACTATED RINGERS 1,000 ML 100 ML IV (13:17)
[2023-06-06] MEDS: OXYTOCIN PREMIX 30 UNIT/500 ML PLAST..BAG IV (13:17)
--- NOTE | 2023-06-06 15:31 | PM.AN.REGBLK ---
Regional Block Pre-procedure Procedure: Continuous Lumbar Epidural for L&D Attending OB provider: Blanca Johnson PMH/ROS narrative: Patient at 1cm, complains of pain and requests epidural. Membranes ruptured. Hx: No personal or family history of anesthesia problems. PSH/Anesthesia history narrative: See pre anesthesia eval Exam narrative: Routine ASA Class: II Labs: Hct 34.6 % (36-46) L 06/05/23 20:11 Plt Count 228 X10^3/uL (150-400) 06/05/23 20:11 Medications: Current Medications Generic Name Dose Route Start Last Admin Trade Name Freq PRN Reason Stop Dose Admin Calcium Carbonate 1,000 mg 06/05/23 20:08 06/06/23 05:28 Calcium Carbonate 500 Mg Tab PO 1,000 mg Q4HR PRN Administration Dyspepsia Carboprost Tromethamine 250 mcg 06/05/23 20:08 Carboprost 250 Mcg/Ml Ampul IM Q90M PRN Bleeding Fentanyl 100 mcg 06/05/23 20:08 06/06/23 14:52 Fentanyl 100 Mcg/2 Ml Inj IV 100 mcg Q1H PRN Administration Pain, Severe (7-10) Oxytocin/Lactated Ringer's 30 unit in 500 mls @ 200 mls/hr 06/05/23 20:08 Oxytocin Premix IV CONT PRN Bleeding Protocol Tranexamic Acid 1,000 mg/ 100 mls @ 200 mls/hr 06/05/23 20:08 Sodium Chloride IV NOW PRN Bleeding Lactated Ringer's 1,000 mls @ 100 mls/hr 06/05/23 20:15 06/06/23 13:17 Lactated Ringers IV 100 mls/hr CONT RG Administration Oxytocin/Lactated Ringer's 30 unit in 500 mls @ 3 mls/hr 06/06/23 21:00 06/06/23 13:17 Oxytocin Premix IV 1 milliunit/min TITRATE RG 1 mls/hr Administration Protocol 3 MILLIUNIT/MIN Levothyroxine Sodium 25 mcg 06/06/23 06:00 06/06/23 08:05 Levothyroxine 25 Mcg Tablet PO 25 mcg DAILY@0600 RG Administration Lidocaine HCl 20 ml 06/05/23 20:08 Lidocaine 1% 20 Ml INJ INTRA-OP PRN Post Delivery Methylergonovine Maleate 0.2 mg 06/05/23 20:08 Methylergonovine 0.2 Mg Tablet PO Q6HR PRN Heavy Bleeding Methylergonovine Maleate 0.2 mg 06/05/23 20:08 Methylergonovine 0.2 Mg/Ml Vial IM NOW PRN Bleeding Misoprostol 800 mcg 06/05/23 20:08 Misoprostol 200 Mcg Tablet DC NOW PRN Bleeding Misoprostol 400 mcg 06/05/23 20:08 Misoprostol 200 Mcg Tablet SL NOW PRN Bleeding Misoprostol 25 mcg 06/05/23 20:15 06/06/23 04:54 Misoprostol 25 Mcg Tablet PO 25 mcg Q4H RG Administration Naloxone HCl 0.2 mg 06/05/23 20:08 Naloxone 0.4 Mg/Ml Vial IV Q2MIN PRN Opiate Reversal Ondansetron HCl 4 mg 06/05/23 20:08 06/06/23 12:46 Ondansetron 4 Mg/2 Ml Inj IV 4 mg Q4HR PRN Administration Nausea And Vomiting Oxytocin 10 unit 06/05/23 20:08 Oxytocin 10 Unit/Ml Vial IM NOW PRN Bleeding Sertraline HCl 100 mg 06/06/23 09:00 06/06/23 08:05 Sertraline 50 Mg Tablet PO 100 mg DAILY RG Administration Zolpidem Tartrate 5 mg 06/05/23 20:15 06/05/23 21:09 Zolpidem 5 Mg Tablet PO 5 mg BEDTIME PRN Administration Sleep Allergies: Allergies Allergy/AdvReac Type Severity Reaction Status Date / Time latex Allergy Mild swelling Verified 06/04/23 08:17 and hives adhesive Allergy Unknown rash and Verified 06/04/23 08:17 eats skin into a sore sumatriptan [From Imitrex] AdvReac Unknown Verified 06/04/23 08:17 Procedure Insertion date: 06/06/23 Insertion time: 15:17 Prep/Local: 1% lidocaine (CHD prep) Interspace: L3-4 Patient position: sitting Needle: 18 gauge Realtead Loss of resistance with: saline TAMMI at (cm): 8 Catheter placed at SKIN (cm): 12 Catheter in SPACE (cm): 4 Insertion: No CSF, No Blood, No Paresthesia with insertion, No Paresthesia with injection and No Test dose reaction Initial Medications TEST DOSE time: 15:18 TEST DOSE: 1.5% lidocaine with epinephrine 1:200k (mL): 4 BOLUS DOSE time: 15:24 BOLUS DOSE (mL): 8 BOLUS DOSE med: other (.125% Bup with 2mcg/ml fent) Infusion INFUSION: 0.125% bupivacaine and with fentanyl 2 mcg/mL Initial rate (mL/hr): 8 Post-procedure Anesthesia time START: 15:14 Anesthesia time END: 10:19 Post-procedure Anesthesia Assessment: Yes CV function: HR/BP stable, Yes Resp function: RR/sat/airway adequate, Yes Post-op hydration adequate, Yes Pain control adequate, Yes Nausea & vomiting absent, Yes Temperature > 36 C, Yes Mental status appropriate and Yes Anesthesia complications
--- NOTE | 2023-06-06 21:30 | PM.OBPNLAB ---
Date/Time Date Patient Seen: 06/06/23 Time Patient Seen: 16:35 Pain Control Pain control: epidural Pelvic Exam Dilation (cm): 1 Effacement (%): 75 station: -3 Amniotic membrane status: Intact Contractions Contractions on admission: none Monitor mode: External Pitocin rate (mU/min): 4 Contraction frequency (min): 2 Contraction duration (min): 1 Contraction pattern: Regular Contraction intensity: Mild Status status: Category l Heart Rate Baseline: 135 Monitor Accelerations: Present Monitor Decelerations: Absent Monitor Variability: Moderate Assessment and Plan Assessment: induction ongoing Comments: Will recheck this evening and decided on shutting Pitocin off overnight
--- NOTE | 2023-06-06 21:31 | PM.OBPNLAB ---
Date/Time Date Patient Seen: 06/06/23 Time Patient Seen: 21:31 Pain Control Pain control: epidural Pelvic Exam Dilation (cm): 9 Effacement (%): 100 station: +2 Amniotic membrane status: Ruptured Contractions Monitor mode: External Pitocin rate (mU/min): 4 Contraction frequency (min): 3 Contraction duration (min): 1 Contraction pattern: Regular Contraction intensity: Strong/Firm Status status: Category l Heart Rate Baseline: 135 Monitor Accelerations: Present Monitor Decelerations: Early and Late Monitor Variability: Moderate Assessment and Plan Assessment: active labor Comments: Will begin pushing soon scalp electrode placed due to inability to continuously monitor
--- NOTE | 2023-06-06 22:46 | PM.OBPRVD ---
Events: Labor Induction Labor & Delivery Delivery date: 06/06/23 Intrapartal Events: Deceleration (Deep variable) Cervical ripening method: per misoprostal protocol Induction method: per pitocin protocol Delivery monitor: external FHT and external uterine Route of delivery: vacuum extraction Indication for instrumentation: nonreassuring FHR tracing (Deep variable decelerations with pushing) Episiotomy description: None L&D Laceration Description: Perineal - 2nd Degree and Vaginal - 2nd Degree Delivery repair: vicryl and chromic Quantitative Blood Loss: 100 Anesthesia Type: Epidural Complications: None Narrative: Patient complete and pushed for 19 minutes. At 10:19 p.m., a live male infant delivered with vacuum assistance over an intact perineum. Vacuum was applied due to deep variable decelerations with pushing. With 1 pull, the vertex delivered to the perineum. The vacuum was removed. With 1 more push the head delivered in the GOPAL presentation. There was a nuchal cord x1 which was reduced on the perineum. A mild shoulder dystocia was encountered. This was relieved with Salma and suprapubic pressure. The infant was placed on mom's abdomen. The cord was double clamped and cut after it stopped pulsing. Cord bloods were obtained. The placenta delivered intact with a three-vessel cord at 10:26 p.m. A second-degree vaginal/perineal laceration was repaired in the usual fashion. QBL 100 cc. Epidural analgesia. . Mom and infant stable to recovery. Apgars 6 at 1 minute and 9 at 5 minutes. Lap and 4 x 4 count correct x2. Instrument count correct x2. Baby 1: Infant gender: Male Presentation: vertex Position: Left Occiput Anterior Placenta delivery description: Spontaneous Cord Vessel Description: 3 Vessels, Nuchal Cord and Clamped/Cut (after cord stopped pulsing) score (1 min): 6 score (5 min): 9 weight: 7 lb 0.7 oz Plan for aftercare: Routine care
[2023-06-06] MEDS: diphenhydrAMINE 50 MG/ML VIAL 25 MG IV (23:07)
[2023-06-07] MEDS: IBUPROFEN 600 MG TABLET PO ×3 (00:22→12:30)
[2023-06-07] MEDS: ACETAMINOPHEN 325 MG TABLET 650 MG PO ×3 (00:22→12:30)
[2023-06-07 06:14] LABS: Hematocrit 31.4 % (36-46); Hemoglobin 10.9 g/dL (12.0-16.0)
[2023-06-07] MEDS: SERTRALINE 50 MG TABLET PO (09:39)
[2023-06-07] MEDS: LEVOTHYROXINE 25 MCG TABLET PO (09:39)
[2023-06-07] MEDS: DOCUSATE 100 MG CAPSULE PO (09:39)
[2023-06-07] MEDS: PRENATAL VIT,CALC/IRON/FOLIC 1 TABLET 1 TAB PO (09:39)
[2023-06-07] MEDS: OXYCODONE IR 5 MG TABLET PO ×2 (12:30→16:17)
--- NOTE | 2023-06-20 05:26 | P.DS_ITS ---
Discharge Providers Provider Date of admission: 06/05/23 19:27 Discharge Date: 06/07/23 Primary care physician: Cassandra Veloz Consults: 06/05/23 20:08 Consult to Anesthesiology Urgent Comment: Consulting Provider: Anesthesiologist Reason for consultation: Epidural Discharge provider: Blanca Johnson MD Summary Hospital Course Date Patient Seen: 06/07/23 Time Patient Seen: 12:30 Diagnoses: 38-3/7 weeks gestation Recurrent loss Antiphospholipid antibody syndrome Cervical ripening with Cytotec Pitocin induction of labor Second-degree perineal/vaginal laceration Hospital Course: Patient is a 27-year-old 4 para 1 who presented on June 05, 2023 for cervical ripening with Cytotec. She was being induced due to antiphospholipid antibody syndrome. She received 3 doses of Cytotec overnight. In the morning on June 06, 2023 she was started on Pitocin. She progressed slowly into active labor. She had a spontaneous rupture of membranes. She received an epidural for pain management. She progressed to complete dilation and had a vacuum assisted vaginal delivery due to deep variable decelerations with pushing. She had a mild shoulder dystocia which was relieved with margarita Vieira and suprapubic pressure. Her course was unremarkable. She was discharged home on June 07, 2023. Peripartum Data Infant Delivery Method: Assisted Delivery (Vacuum) Laceration Description: Perineal - 2nd Degree and Vaginal - 2nd Degree Episiotomy description: None Procedures: Cytotec cervical ripening Pitocin induction of labor Epidural analgesia Vacuum assisted vaginal delivery Second-degree vaginal/perineal laceration repair complications: none [place] 1: Gender: Male Disposition of : home Status at Discharge Cognitive/behavioral status at discharge: oriented Functional status at discharge: independent ambulation Overall status at discharge: patient is progressing back to baseline Time Spent with Patient Time attestation: Total time spent providing and/or coordinating discharge services: Time spent: Less than 30 minutes Objective Labs 06/07/23 06:00 Exam Narrative Exam Narrative: Generally: Patient is sitting up in bed, holding , no acute distress Fundus: Firm at U -1 Extremities: Trace edema, negative Homans Discharge Plan Discharge Plan Patient Disposition: Home Provider Discharge Comment: Call with fever, chills, or bleeding vaginally more than a pad in an hour Ibuprofen 600 mg every 6 hours as needed for cramping Tylenol 650 mg every 6 hours as needed for pain Push oral fluids Discharge orders & Medications Prescriptions: Continued sertraline [Zoloft] 50 mg tablet 50 mg PO DAILY Qty: 90 3RF levothyroxine 25 mcg tablet 25 mcg PO DAILY Qty: 90 3RF prenat.vits,rom,jxm-kprp-oooys Tablet 1 tab PO DAILY omega 1-evy-ddv-fish oil [Fish Oil] 360-1,200 mg capsule,delayed release(DR/EC) 1 cap PO DAILY Discontinued pantoprazole [Protonix] 40 mg tablet,delayed release (DR/EC) 40 mg PO DAILY Qty: 30 6RF No Action (DME) Easy Touch Tuberculin Fliplock 1 mL 28 gauge x 1/2 syringe See Rx Instructions .Route Qty: 100 0RF Rx Instructions: As directed dicloxacillin 500 mg capsule 500 mg PO QID 14 Days Qty: 56 0RF Follow up/Referrals: Blanca Johnson MD [Physician] - 07/18/23 10:30 am (6 week visit) Diet/Activity/Treatments Diet: Regular Activity: Nothing in the vagina and till 6 week visit Skin/Wound/Dressing Care Report to your healthcare provider any signs of infection, such as:: chills, fever, increased pain and unusual drainage Visit Report/Discharge Packet Instructions: DI for Labor and Delivery, Vaginal Stand Alone Forms: Discharge: Care, Patient Portal/API, Stroke Signs & Symptoms Discharge Data Primary Care Provider: Cassandra Veloz
== END 2023-06-07 18:00 | disposition home or self-care (01) | DRG 806 ==
PROVIDERS: Admitting Provider Obstetrics & Gynecology; PCP Physician Assistant; Referring Provider Obstetrics & Gynecology; Visit Provider Obstetrics & Gynecology
DX: O99.12 Other diseases of the blood and blood-forming organs and certain disorders involving the immune mechanism complicating childbirth (principal); D68.61 Antiphospholipid syndrome; Z37.0 Single live birth; O76 Abnormality in fetal heart rate and rhythm complicating labor and delivery; O70.1 Second degree perineal laceration during delivery; Z3A.38 38 weeks gestation of pregnancy
CPT/HCPCS: 36415; 59025; 59050; 59200; 59400; 85014; 85018; 85025; 86850; 86900; 86901; G0379; J1200; J2405; J2590; J3010

== ENCOUNTER → 2023-07-18 11:21 | Outpatient (CLI) | payer OTHER, SELFPAY ==
[2023-07-18 12:33] LABS: Free T4, Direct Thyroxine 0.77 ng/dL (0.78-2.19)
== END ==
PROVIDERS: PCP Physician Assistant; Referring Provider Specialist; Visit Provider Specialist
DX: Z39.2 Encounter for routine postpartum follow-up (principal)
CPT/HCPCS: 36415; 84439; 84443

== ENCOUNTER → 2023-10-26 11:51 | Outpatient (CLI) | payer OTHER, SELFPAY ==
[2023-10-26 13:32] LABS: Thyroid Stimulating Hormone 0.749 uIU/mL (0.47-4.68)
== END ==
PROVIDERS: PCP Family Medicine; Referring Provider Obstetrics & Gynecology; Visit Provider Obstetrics & Gynecology
DX: E03.9 Hypothyroidism, unspecified (principal)
CPT/HCPCS: 36415; 84439; 84443

== ENCOUNTER → 2024-09-02 11:50 | Outpatient (CLI) | payer OTHER, SELFPAY ==
[2024-09-02 14:56] LABS: Urine N gonorrhoeae NOT DETECTED
[2024-09-02 15:07] LABS: Urine Chlamydia NOT DETECTED
== END ==
PROVIDERS: PCP Nurse Practitioner Family; Visit Provider Obstetrics & Gynecology
DX: O09.891 Supervision of other high risk pregnancies, first trimester; Z11.3 Encounter for screening for infections with a predominantly sexual mode of transmission; Z3A.10 10 weeks gestation of pregnancy
CPT/HCPCS: 87086; 87491; 87591

== ENCOUNTER → 2024-09-02 12:05 | Outpatient (CLI) | payer OTHER, SELFPAY ==
[2024-09-02 13:03] LABS: Add Manual Diff / Slide Review NO; Basophils Absolute Auto 100 /uL (0-100); Basophils Percent Auto 0.5 % (0-2); Eosinophils Absolute Auto 200 /uL (0-450); Eosinophils Percent Auto 1.8 % (2-4); Hematocrit 36.8 % (36-46); Hemoglobin 12.8 g/dL (12.0-16.0); Lymphocytes Absolute Auto 1600 /uL (1100-4500); Lymphocytes Percent Auto 14.6 % (25-40); Mean Corpuscular HGB Conc 34.8 % (30-36); Mean Corpuscular Hemoglobin 31.5 PG (26-34); Mean Corpuscular Volume 90.6 fL (80-100); Monocytes Absolute Auto 700 /uL (0-900); Monocytes Percent Auto 6.2 % (3-14); Neutrophils Absolute Auto 8500 /uL (1500-7000); Neutrophils Percent Auto 76.9 % (50-75); Platelet Count 268 X10^3/uL (150-400); Red Blood Cell Count 4.07 X10^6/uL (4.0-5.2); Red Cell Distribution Width 12.5 % (11.6-14.8)
[2024-09-02 13:10] LABS: Hemoglobin A1C% w Est Avg Glu 4.5 % (4.0-6.0)
[2024-09-02 13:27] LABS: Natera Collection Specimen Collected
[2024-09-02 13:54] LABS: Thyroid Stimulating Hormone 1.61 uIU/mL (0.47-4.68)
[2024-09-03 14:50] LABS: Hepatitis B Surface Antigen NEGATIVE s/c (NEGATIVE); Rubella Antibody IgG 14.9 IU/mL (>15)
[2024-09-03 15:09] LABS: HIV 1 & 2 Ab/Ag 4th Gen Combo NEGATIVE (NEGATIVE); Hep C Virus Ab w/Reflex Quant NEGATIVE s/c (NEGATIVE)
== END ==
PROVIDERS: PCP Nurse Practitioner Family; Referring Provider Obstetrics & Gynecology; Visit Provider Obstetrics & Gynecology
DX: O09.891 Supervision of other high risk pregnancies, first trimester (principal); O99.211 Obesity complicating pregnancy, first trimester; O99.281 Endocrine, nutritional and metabolic diseases complicating pregnancy, first trimester; Z11.3 Encounter for screening for infections with a predominantly sexual mode of transmission; Z3A.10 10 weeks gestation of pregnancy
CPT/HCPCS: 36415; 80055; 83036; 84439; 84443; 86787; 86803; 86850; 86900; 86901; 87086; 87389; 87491; 87591

== ENCOUNTER → 2024-09-17 11:12 | Outpatient (CLI) | payer OTHER, SELFPAY ==
[2024-09-18 14:36] LABS: Candida species Negative (Negative); Gardnerella vaginalis Negative (Negative); Trichomoas vaginalis Negative (Negative)
== END ==
LOC: LAB 11:13
PROVIDERS: PCP Nurse Practitioner Family; Visit Provider Specialist
DX: N89.8 Other specified noninflammatory disorders of vagina (principal)
CPT/HCPCS: 87480; 87510; 87660

== ENCOUNTER → 2024-10-28 14:43 | Outpatient (CLI) | payer OTHER, SELFPAY ==
[2024-10-28 15:43] LABS: Thyroid Stimulating Hormone 1.04 uIU/mL (0.47-4.68)
[2024-10-30 20:11] LABS: AFP Value 30.9 ng/mL (.); Gest Age on Col Date 18.1 weeks (.); Insulin Dep Diabetes No (.); OSBR Risk 1IN 10000 (.); Results Report (.); Test Results *Screen Negative* (.)
== END ==
PROVIDERS: PCP Nurse Practitioner Family; Referring Provider Obstetrics & Gynecology; Visit Provider Obstetrics & Gynecology
DX: Z34.92 Encounter for supervision of normal pregnancy, unspecified, second trimester (principal); Z3A.18 18 weeks gestation of pregnancy
CPT/HCPCS: 36415; 82105; 84439; 84443

== ENCOUNTER → 2024-11-11 08:35 | Outpatient (CLI) | payer OTHER, SELFPAY ==
--- NOTE | 2024-11-11 08:36 | DI.US.S_ITS ---
PROCEDURE: US OB >= 14 WEEKS FETUS INDICATIONS: 20 week anatomy scan OUTSIDE/PRIOR DATING DATA: Working MERVIN 03/30/2025 TECHNIQUE: Real-time scanning was performed of the fetus, with image documentation and biometric measurements. Endovaginal scanning: No COMPARISON: [facility], , OB >= 14 WEEKS FETUS, 06/04/2023, 8:42. [facility], , OB <= 14 WEEKS FETUS, 09/02/2024, 12:04. FINDINGS: General: A single living intrauterine gestation is present. Presentation: Variable. Placenta: Placental position is posterior , without previa. Amniotic fluid index: 14.1 cm, normal range is 5-24 cm. Single deepest vertical pocket is 4.5 cm. heart rate: 147 beats per minute. Maternal cervical canal: 4.5 cm long. Normal lower limit is 2.5 cm. biometrics: Biparietal diameter: 4.5 cm, 19 weeks and 3 days Head circumference: 16.8 cm, 19 weeks and 3 days Abdominal circumference: 14.6 cm, 19 weeks and 6 days Femur length: 3.1 cm, 19 weeks and 5 days Clinically estimated gestational age: 20 weeks and 1 day Composite gestational age from present scan: 19 weeks and 4 days Estimated weight and percentile: 310 g, 24% Anatomic survey: Neuro: Ventricles are non-dilated at less than 10 mm. Cisterna magna is normal at 3-11 mm. Cerebellum is normal in size and morphology. Nuchal skin fold: Normal at less than 6 mm between 14-21 weeks gestational age. Face: Nose and lips, facial profile are normal. Spine: No evidence for spina bifida. Heart: 4-chambered heart is present, with normal ventricular outflow tracts. Diaphragm: Diaphragm is intact. Stomach: Left-sided stomach is present. Kidneys: No hydronephrosis. Normal is less than 5 mm in 2nd trimester, less than 7 mm in 3rd trimester. Cord: 3-vessel cord has orthotopic insertion. Possible marginal origin from the superior end of the placenta. Bladder: Normal in size. Extremities: All 4 extremities identified. IMPRESSION: Living intrauterine gestation with variable positioning. Normal LAWERNCE. EFW at the 24 percentile, within normal limits. No significant abnormalities on routine anatomic survey. Possible marginal cord origin from the superior end of the placenta. Consider follow-up for this finding. Dictated by: Heron Bell M.D. on 11/11/2024 at 15:53 Approved by: Heron Bell M.D. on 11/11/2024 at 15:57
== END ==
PROVIDERS: PCP Nurse Practitioner Family; Referring Provider Specialist; Visit Provider Specialist
DX: Z34.82 Encounter for supervision of other normal pregnancy, second trimester (principal); Z3A.20 20 weeks gestation of pregnancy
CPT/HCPCS: 76811

== ENCOUNTER → 2024-11-19 | Outpatient (CLI) | payer OTHER, SELFPAY ==
--- NOTE | 2024-11-19 13:14 | DI.US.S_ITS ---
US breast LT limited: 11/19/2024. BI-RADS: 1 CLINICAL: 28-year old female for left diagnostic breast ultrasound. Tyrer- Cuzick lifetime risk of 10.1%. PRIOR EXAMS: No prior examinations available. ULTRASOUND TECHNIQUE Real-time agustin scale imaging of the area of clinical interest was performed with image documentation. ULTRASOUND FINDINGS Left: There is no sonographic abnormality in the area of clinical concern along the 3 to 5 o'clock Radian. No suspicious sonographic finding present. IMPRESSION: Left * No evidence of malignancy. RECOMMENDATIONS Left * Clinical follow-up is recommended, and further management of palpable abnormalities or other focal signs or symptoms should be based on the results of clinical evaluation. If palpable abnormality or other concerning symptom persists or progresses, further clinical evaluation should be considered. Bilateral * Annual screening mammography beginning at age 40. COMMENTS: Findings and recommendations were conveyed to the patient during today's evaluation. OVERALL ASSESSMENT CATEGORY BI-RADS-1: Negative. ELECTRONICALLY SIGNED: Danielle Corona M.D. on 11/19/2024 at 11:52:41 PM PT Interpreting Station ID: [id number]
== END ==
PROVIDERS: PCP Nurse Practitioner Family; Referring Provider Obstetrics & Gynecology; Visit Provider Obstetrics & Gynecology
DX: N64.4 Mastodynia (principal)
CPT/HCPCS: 76642

== ENCOUNTER → 2024-12-16 07:10 | Outpatient (CLI) | payer OTHER, SELFPAY ==
[2024-12-16 08:52] LABS: Hematocrit 34.8 % (36-46); Hemoglobin 12.2 g/dL (12.0-16.0)
[2024-12-16 09:09] LABS: GTT (PREG) 1 Hour PP 50gm Dose 114 mg/dL (76-139)
[2024-12-16 09:24] LABS: Free T4, Direct Thyroxine 1.00 ng/dL (0.78-2.19)
[2024-12-16 09:38] LABS: Thyroid Stimulating Hormone 1.13 uIU/mL (0.47-4.68)
== END ==
PROVIDERS: PCP Nurse Practitioner Family; Referring Provider Obstetrics & Gynecology; Visit Provider Obstetrics & Gynecology
DX: O09.892 Supervision of other high risk pregnancies, second trimester (principal); E03.9 Hypothyroidism, unspecified; Z3A.26 26 weeks gestation of pregnancy
CPT/HCPCS: 36415; 82950; 84439; 84443; 85014; 85018

== ENCOUNTER 2025-02-25 11:49 | Outpatient (CLI) | payer BC, SELFPAY ==
--- NOTE | 2025-02-25 13:03 | PM.OBTRLD ---
Visit Information Visit Information Date of evaluation: 02/25/25 Primary OB Provider: Federica Orellana On-call OB Provider: Felicitas Sharma Reason for Evaluation: Yes non-stress test non-stress test reason: other (antiphospholipid syndrome ) [facility] Medical History (Updated 02/03/25 @ 17:50 by Federica Orellana DO) Vaginal delivery (~06/06/23) Migraines Family history of thyroid disease Surgical History Anesthesia History of tonsillectomy (~2017) History of third molar tooth extraction (~2009) Family History (Updated 10/15/22 @ 15:48 by Maolu Landry RN) Mother Murmur Mitral valve prolapse Charanjit's thyroiditis Sister Metabolic syndrome Grandmother Breast cancer Lung cancer Grandmother Breast cancer Grandfather Breast cancer Sister Adriana-Danlos syndrome Brother Bipolar disorder Father Alcoholism Family estrangement Social History marital status: number of children: 1 household members: spouse and children lives independently: Yes caregiver/support person: Yes housing: house pets and animals: Yes (dogs, rabbit) education level: college ([employer] degree) occupational status: employed (population health nurse) current occupational exposures/hazards: No special valdez needs: No travel history: over 6 months ago seatbelt use: always helmet use: Yes water heater temp set < 120 deg: Yes working smoke detector in home: Yes fire extinguisher in home: Yes carbon monox detector in home: Yes firearms in home: No do you feel safe at home: Yes second hand exposure: No alcohol intake: former (Occasionally when not ) substance use type: does not use during the past year weight has: other (son 14 months old, now below pre- weight) well-balanced diet: daily or most days daily servings fruits/ve or more times/day caffeine: Yes (aware of 200mg limit) Type(s) of exercise: walking, aerobic and weight lifting frequency: 5-6 times per week Evaluation Evaluation Baseline heart rate: 150 Variability: Moderate (6-25) monitor accelerations: Present Monitor Decelerations: Absent Contraction Frequency (minutes): 0 Status: Category l Diagnosis, Plan/Disposition Plan/Disposition Plan: 29 yo presenting at [id number] scheduled NST for maternal antiphospholipid Ab syndrome on Lovenox and ASA. NST reactive. continue with current care plan and f/up with primary OB as previously scheduled
== END 2025-02-25 13:09 | disposition home or self-care (01) ==
LOC: LABOR 12:27 → OB 14:19
PROVIDERS: PCP Nurse Practitioner Family; Referring Provider Family Medicine; Visit Provider Family Medicine
DX: O99.113 Other diseases of the blood and blood-forming organs and certain disorders involving the immune mechanism complicating pregnancy, third trimester (principal); D68.61 Antiphospholipid syndrome; Z3A.35 35 weeks gestation of pregnancy
CPT/HCPCS: 59025; G0378; G0379

== ENCOUNTER → 2025-03-02 15:23 | Outpatient (CLI) | payer BC, SELFPAY ==
[2025-03-03 13:54] LABS: Strep Grp B PCR NEG for Grp B Strep
== END ==
PROVIDERS: PCP Nurse Practitioner Family; Visit Provider Obstetrics & Gynecology
DX: Z36.85 Encounter for antenatal screening for Streptococcus B (principal)
CPT/HCPCS: 87653

== ENCOUNTER 2025-03-02 16:35 | Outpatient (CLI) | payer BC, SELFPAY | END 2025-03-02 17:40 | disposition home or self-care (01) | LOC: LABOR 16:42 → OB 03-03 06:30 | PROVIDERS: PCP Nurse Practitioner Family; Referring Provider Obstetrics & Gynecology; Visit Provider Obstetrics & Gynecology | DX: O99.283 Endocrine, nutritional and metabolic diseases complicating pregnancy, third trimester (principal); E03.9 Hypothyroidism, unspecified; O99.113 Other diseases of the blood and blood-forming organs and certain disorders involving the immune mechanism complicating pregnancy, third trimester; D68.61 Antiphospholipid syndrome; O43.893 Other placental disorders, third trimester; Z3A.36 36 weeks gestation of pregnancy; Z36.85 Encounter for antenatal screening for Streptococcus B | CPT/HCPCS: 59025; 87653; G0378; G0379 ==

== ENCOUNTER 2025-03-08 16:57 | Outpatient (CLI) | payer BC, SELFPAY | END 2025-03-08 18:20 | disposition home or self-care (01) | LOC: OB 03-09 13:53 | PROVIDERS: PCP Nurse Practitioner Family; Referring Provider Obstetrics & Gynecology; Visit Provider Obstetrics & Gynecology | DX: O99.283 Endocrine, nutritional and metabolic diseases complicating pregnancy, third trimester (principal); E03.9 Hypothyroidism, unspecified; O99.113 Other diseases of the blood and blood-forming organs and certain disorders involving the immune mechanism complicating pregnancy, third trimester; D68.61 Antiphospholipid syndrome; Z3A.36 36 weeks gestation of pregnancy | CPT/HCPCS: 59025; G0378; G0379 ==

== ENCOUNTER 2025-03-11 20:49 | Outpatient (CLI) | payer BC, SELFPAY | END 2025-03-11 21:35 | disposition home or self-care (01) | LOC: OB 03-15 10:58 | PROVIDERS: PCP Nurse Practitioner Family; Referring Provider Student in an Organized Health Care Education/Training Program; Visit Provider Student in an Organized Health Care Education/Training Program | DX: O42.92 Full-term premature rupture of membranes, unspecified as to length of time between rupture and onset of labor (principal); Z3A.37 37 weeks gestation of pregnancy | CPT/HCPCS: 59025; 84112; G0378; G0379 ==

== ENCOUNTER 2025-03-16 11:23 | Inpatient (IN) | payer BC, SELFPAY ==
--- NOTE | 2025-03-16 13:19 | PM.OBHP.IH.1 ---
OB HPI Date/Time Date of admission: 03/16/25 Date Patient Seen: 03/16/25 Time Patient Seen: 13:19 History of Present Condition Chief complaint: NST MERVIN Calculator Estimated Delivery Date Method Current WG Current Estimate 03/30/25 LMP (Certain) 38w 0d Other Estimates 04/01/25 Ultrasound #1 37w 5d : 5 Para: 1 Narrative: Patient is a 29yo @ 38wks presents to the center for scheduled NST due to APS on heparin and marginal cord insertion. Patient reports irregular ctxs and nausea. reports good movement. care: good care Dating criteria OB: based on LMP only Ultrasounds: normal mid trimester US Narrative: complicated by Antiphospholipid syndrome- on heparin 500 BID currently. Indications Indication for induction OB: nonreassuring APT Preadmission Labs Last OB Lab Results: Blood Type O Positive Today, 13:00 Antibody Screen Negative Today, 13:00 Hct, (36-46) 36.4 % Today, 13:00 Hgb, (12.0-16.0) 12.9 g/dL Today, 13:00 Hep Bs Antigen, (NEGATIVE) Negative s/c 09/02/24, 12:27 Hepatitis C Antibody, (NEGATIVE) Negative s/c 09/02/24, 12:27 Rubella Antibody, (>15) 14.9 IU/mL L 09/02/24, 12:27 VZV IgG Antibody, (Non Reactive) Non reactive 09/02/24, 12:27 Glucose 1 Hr 50 gm, (76-139) 114 mg/dL 12/16/24, 08:30 Hemoglobin A1c, (4.0-6.0) 4.5 % 09/02/24, 12:27 Group B Strep (PCR) Neg for grp b strep 03/02/25, 15:23 -: Chlamydia screen: negative, Gonorrhea screen: negative and Urine: negative -: PAP smear: Normal Genetic Screens: Cell-free DNA: Normal External Labs -: Urine: negative Prior (ies) Past Pregnancies Del. Date GA/Weeks Labor Lgth Wt Sex Route Outcome Anesthesia Place Delv Breastfeed Preg Comp Name 12/15/21 4+ spontaneous 03/17/22 8 spontaneous 05/17/22 4+ spontaneous 06/06/23 38+ 22 7 lb 1 oz Male vaginal vacuum live - full term epidural IH 11 months Maddex Delivery Date: 03/17/22 Last Updated by: Malou Landry RN missed AB, stopped ~6 wk Hx # Term Pregnancies: 1 Number of Living Children: 1 Spontaneous abortions: 3 Evaluation Evaluation Baseline heart rate: 130 Variability: Moderate (6-25) monitor accelerations: Present Monitor Decelerations: Variable Contraction Frequency (minutes): 6 Uterine Contraction Intensity: Mild Category of Tracing: Reactive Status: Category ll Dilation (cm): 3 Effacement (%): 80 Dilation: 3-4 cm Effacement: >/=80% station: -3 Position of cervix: mid Consistency: firm Strickland score: 6 PFSH Medical History (Updated 02/03/25 @ 17:50 by Federica Orellana DO) Vaginal delivery (~06/06/23) Migraines Family history of thyroid disease Surgical History Anesthesia History of tonsillectomy (~2017) History of third molar tooth extraction (~2009) Family History (Updated 10/15/22 @ 15:48 by Malou Landry RN) Mother Murmur Mitral valve prolapse Charanjit's thyroiditis Sister Metabolic syndrome Grandmother Breast cancer Lung cancer Grandmother Breast cancer Grandfather Breast cancer Sister Adriana-Danlos syndrome Brother Bipolar disorder Father Alcoholism Family estrangement Social History marital status: number of children: 1 household members: spouse and children lives independently: Yes caregiver/support person: Yes housing: house pets and animals: Yes (dogs, rabbit) education level: college ([employer] degree) occupational status: employed (population health nurse) current occupational exposures/hazards: No special valdez needs: No travel history: over 6 months ago seatbelt use: always helmet use: Yes water heater temp set < 120 deg: Yes working smoke detector in home: Yes fire extinguisher in home: Yes carbon monox detector in home: Yes firearms in home: No do you feel safe at home: Yes Smoking Status: Never smoker second hand exposure: No alcohol intake: former (Occasionally when not ) substance use type: does not use during the past year weight has: other (son 14 months old, now below pre- weight) well-balanced diet: daily or most days daily servings fruits/ve or more times/day caffeine: Yes (aware of 200mg limit) Type(s) of exercise: walking, aerobic and weight lifting frequency: 5-6 times per week Meds Home Medications and Allergies Home Medications ?Medication ?Instructions ?Recorded ?Confirmed ?Type prenat.vits,rom,[id number] 1 tab PO DAILY 04/18/21 03/16/25 History levothyroxine 50 mcg tablet 50 mcg PO DAILY #30 tabs 07/18/23 03/16/25 Rx (Euthyrox) levothyroxine 25 mcg tablet 25 mcg PO DAILY #90 tabs 06/02/24 03/16/25 Rx sertraline 100 mg tablet 100 mg PO DAILY 07/30/24 03/16/25 History ondansetron 4 mg disintegrating 4 mg PO Q6H PRN nausea and 12/17/24 03/16/25 Rx tablet vomiting #20 tabs [id number] antigen-[id number] 0.5 ml IM ONCE mother #1 02/04/25 03/16/25 Rx adjuvant(PF) 120 mcg/0.5 mL IM ea suspension, kit Held on 03/16/25. Instructions: Order Change heparin (porcine) 5,000 unit/mL 5,000 unit SUBCUT Q12H 30 days #25 03/02/25 03/16/25 Rx injection solution mL Allergies Allergy/AdvReac Type Severity Reaction Status Date / Time sumatriptan (From Imitrex) AdvReac Severe worsening Verified 02/19/25 14:53 migraine adhesive AdvReac Mild redness Verified 02/19/25 14:53 and swelling latex AdvReac Mild Redness of Verified 02/19/25 14:53 Skin OB Exam Narrative Exam Narrative: vital signs appropriate GEN- AAO x3, NAD abdomen- soft, nondistended, gravid uterus cervix- 3/80/-3, firm, mid position in clinic LE- trace edema HENMT Head: normal to inspection Objective Labs 03/16/25 13:00 Assessment and Plan Assessment and Plan Assessment and Plan narrative: Patient is a 29yo @ 38wks presents for testing. 1. Nonreassuring testing NST reactive but with intermittent variable decels considering gestational age- 38wks with history of APS, marginal cord insertion- recommend to proceed with delivery - admit to L&D - CEFM, IVF - cervix 3/80/-3, firm, mid position in clinic today, strickland score- 6 - will start pitocin for IOL, titrate per protocol - GBS negative - anesthesia per request - anticipate vaginal delivery. 2. Antiphospholid syndrome- history of recurrent loss - no personal history of DVT/PE - last heparin dose this am - plan to restart Lovenox 40mg SQ daily for 6wks 3. Anxiety/depression - continue sertraline 100mg daily -mood appropriate 5. Rubella nonimmune - MMR Time-Based Coding :: [TOTAL MINUTES] spent with patient and on the chart (including review of chart, obtaining history, exam, reviewing outside data, placing orders, documenting exam and treatment plan, and counseling patient) on [DATE].
[2025-03-16 13:33] LABS: Add Manual Diff / Slide Review NO; Hematocrit 36.4 % (36-46); Hemoglobin 12.9 g/dL (12.0-16.0); Lymphocytes Absolute Auto 1600 /uL (1100-4500); Mean Corpuscular HGB Conc 35.5 % (30-36); Mean Corpuscular Hemoglobin 31.4 PG (26-34); Mean Corpuscular Volume 88.5 fL (80-100); Platelet Count 227 X10^3/uL (150-400)
[2025-03-16 13:47] VITALS: BP 112/66
[2025-03-16] MEDS: LACTATED RINGERS 1,000 ML 100 ML IV ×2 (13:53→19:54)
[2025-03-16] MEDS: OXYTOCIN PREMIX 30 UNIT/500 ML PLAST..BAG IV (13:54)
[2025-03-16] MEDS: ONDANSETRON 4 MG/2 ML INJ IV ×2 (13:54→23:13)
[2025-03-16 16:03] LABS: PTT Partial Thromboplastin Tim 26 SECONDS (25.1-36.5)
--- NOTE | 2025-03-16 19:18 | PM.AN.REGBLK ---
Regional Block Pre-procedure PMH/ROS narrative: active labor ASA Class: III Labs: Hct 36.4 % (36-46) 03/16/25 13:00 Plt Count 227 X10^3/uL (150-400) 03/16/25 13:00 Medications: Current Medications Generic Name Dose Route Start Last Admin Trade Name Freq PRN Reason Stop Dose Admin Carboprost Tromethamine 250 mcg 03/16/25 13:15 Carboprost 250 Mcg/Ml Ampul IM Q90M PRN Bleeding Diphenhydramine HCl 25 mg 03/16/25 19:16 Diphenhydramine 50 Mg/Ml Vial IV Q10M PRN Pruritis Ephedrine Sulfate 10 mg 03/16/25 19:16 Ephedrine 50 Mg/Ml Vial IV Q5M PRN Blood pressure decrease more than 20% of baseline. Oxytocin/Lactated Ringer's 30 unit in 500 mls @ 200 mls/hr 03/16/25 13:15 Oxytocin Premix IV CONT PRN Bleeding Protocol Tranexamic Acid 1,000 mg/ 100 mls @ 600 mls/hr 03/16/25 13:15 Sodium Chloride IV NOW PRN Bleeding Oxytocin/Lactated Ringer's 30 unit in 500 mls @ 2 mls/hr 03/16/25 13:15 03/16/25 13:54 Oxytocin Premix IV 2 milliunit/min TITRATE RG 2 mls/hr Protocol Administration 2 MILLIUNIT/MIN Lactated Ringer's 1,000 mls @ 100 mls/hr 03/16/25 13:15 03/16/25 13:53 Lactated Ringers IV 03/16/25 23:14 100 mls/hr CONT RG Administration FENT 2MCG/ML BUPIV 0.125% EPI 200 mcg in 100 mls @ 8 mls/hr 03/16/25 19:07 Fentanyl/Bupiv/Ns 2mcg/Ml - 0.125% EPIDURAL CONT RG Lidocaine HCl 20 ml 03/16/25 13:15 Lidocaine 1% 20 Ml INJ INTRA-OP PRN Post Delivery Methylergonovine Maleate 0.2 mg 03/16/25 13:15 Methylergonovine 0.2 Mg Tablet PO Q6HR PRN Heavy Bleeding Methylergonovine Maleate 0.2 mg 03/16/25 13:15 Methylergonovine 0.2 Mg/Ml Vial IM NOW PRN Bleeding Mineral Oil 30 ml 03/16/25 13:15 Mineral Oil 30 Ml Udc TOP PRN PRN Version Misoprostol 800 mcg 03/16/25 13:15 Misoprostol 200 Mcg Tablet ND NOW PRN Bleeding Misoprostol 400 mcg 03/16/25 13:15 Misoprostol 200 Mcg Tablet SL NOW PRN Bleeding Nalbuphine HCl 2.5 mg 03/16/25 19:16 Nalbuphine 20 Mg/Ml Ampul IV Q10M PRN Pruritis Naloxone HCl 0.2 mg 03/16/25 13:15 Naloxone 0.4 Mg/Ml Vial IV Q2MIN PRN Opiate Reversal Ondansetron HCl 4 mg 03/16/25 13:28 03/16/25 13:54 Ondansetron 4 Mg/2 Ml Inj IV 4 mg Q6HR PRN Administration Nausea And Vomiting Oxytocin 10 unit 03/16/25 13:15 Oxytocin 10 Unit/Ml Vial IM NOW PRN Bleeding Allergies: Allergies Allergy/AdvReac Type Severity Reaction Status Date / Time sumatriptan (From Imitrex) AdvReac Severe worsening Verified 02/19/25 14:53 migraine adhesive AdvReac Mild redness Verified 02/19/25 14:53 and swelling latex AdvReac Mild Redness of Verified 02/19/25 14:53 Skin --: patient h and p obtained. RBA discussed. pt consent to proceed. drape and prep with sterile technique. v/s/s l3 l4 interspace identified. lido 1% 3 cc skin wheel. tuohy introduced with TAMMI to saline. SAB 27 g pencil point confirm midline placement with return of CSF. no heme. no paresthesias. removed SAB and threaded catheter. secured sterile. 2314 : pt with increasing c/o painful non sharp pressure in rectum lower back and vagina. checked epidural to sharp pain. appears to be functioning. bolused with 5 mL infusate and increased rate to 10 mL. pt complete. Procedure Insertion date: 03/16/25 Insertion time: 18:54 Prep/Local: betadine x3 (chloraprep) and 1% lidocaine (3 cc) Interspace: l3 l4 Patient position: sitting Needle: 17 gauge Tuohy Loss of resistance with: saline TAMMI at (cm): 6 Catheter placed at SKIN (cm): 15 Sensory level: t8 Insertion: No CSF, No Blood, No Paresthesia with insertion, No Paresthesia with injection and No Test dose reaction Initial Medications TEST DOSE time: 18:55 TEST DOSE: 1.5% lidocaine with epinephrine 1:200k (mL): 3 BOLUS DOSE time: 19:04 BOLUS DOSE (mL): 5 BOLUS DOSE med: other (infusate) Infusion INFUSION: 0.125% bupivacaine and with fentanyl 2 mcg/mL Initial rate (mL/hr): 8 Post-procedure Anesthesia date START: 03/16/25 Anesthesia time START: 18:45 Anesthesia date END: 03/16/25 Anesthesia time END: 23:38 Post-procedure Anesthesia Assessment: Yes CV function: HR/BP stable, Yes Resp function: RR/sat/airway adequate, Yes Post-op hydration adequate, Yes Pain control adequate, Yes Nausea & vomiting absent, Yes Temperature > 36 C, Yes Mental status appropriate and Yes Anesthesia complications
[2025-03-16] MEDS: diphenhydrAMINE 50 MG/ML VIAL 25 MG IV ×2 (20:29→21:49)
--- NOTE | 2025-03-16 21:30 | PM.OBPNLAB ---
Date/Time Date Patient Seen: 03/16/25 Time Patient Seen: 21:30 Pain Control Pain control: epidural Comments: Paitent resting comfortably, s/p epidural Pelvic Exam Dilation (cm): 4 Effacement (%): 80 station: -3 Amniotic membrane status: Ruptured Comments: AROM- scant clear fluid Contractions Contractions on admission: regular Monitor mode: External Pitocin rate (mU/min): 8 Contraction frequency (min): 4 Contraction pattern: Regular Contraction phase: Resting Contraction intensity: Moderate Status status: Category l Heart Rate Baseline: 145 Monitor Accelerations: Present Monitor Decelerations: Absent Monitor Variability: Moderate Assessment and Plan Assessment: induction ongoing Plan: continuous present management Comments: Patient is a 29yo @ 38wks ongoing induction of labor for nonreassuring testing continue pitocin titration per protocol, currently at 8mu/min cervix- 4/80/-3 AROM at 2120- scant clear fluid FHTs category 1 s/p epidural anticipate history of shoulder dystocia x 20 secs with previous delivery, nursing team aware. will plan for risk of shoulder dystocia at delivery
--- NOTE | 2025-03-16 23:59 | P.PCNOB_ITS ---
Events: Labor Induction Labor & Delivery Delivery date: 03/16/25 Delivery Time: 23:37 Intrapartal Events: None Cervical ripening method: none Induction method: per pitocin protocol Delivery augmentation: rupture of membranes Delivery monitor: external FHT Route of delivery: Episiotomy description: None L&D Laceration Description: Perineal - 1st Degree Delivery repair: vicryl (2-0 vicryl in usual fashion) Estimated blood loss (mL): 150 Anesthesia Type: Epidural Narrative: Patient had an uncomplicated induction of labor due to nonreassuring testing and progressed to complete dilation and . placenta delivered spontaneously intac. perineal laceration repaired in usual fashion. Mother and baby girl, Gael healthy in room. [place] Baby 1: gender: Female Presentation: vertex Position: Left Occiput Anterior Placenta delivery description: Spontaneous Cord Vessel Description: 3 Vessels score (1 min): 9 score (5 min): 9 Plan for aftercare: Routine care
[2025-03-17] MEDS: DERMOPLAST SPRAY 20% 60 ML 1 SPRAY TOP (00:49)
[2025-03-17] MEDS: LANOLIN OINT 7 GM 1 APPLIC TOP (00:49)
[2025-03-17] MEDS: IBUPROFEN 600 MG TABLET PO ×3 (03:18→15:03)
[2025-03-17] MEDS: ACETAMINOPHEN 325 MG TABLET 650 MG PO ×3 (03:18→15:03)
[2025-03-17] MEDS: LEVOTHYROXINE 75 MCG TABLET PO (07:46)
[2025-03-17] MEDS: SERTRALINE 50 MG TABLET 100 MG PO (09:02)
--- NOTE | 2025-03-17 18:41 | P.DS_ITS ---
Discharge Providers Provider Date of admission: 03/16/25 11:23 Discharge Date: 03/17/25 Primary care physician: TALON Guillen Consults: 03/16/25 13:16 Consult to Anesthesiology Urgent Comment: Consulting Provider: Corina Zavala Reason for consultation: Epidural 03/17/25 00:02 Consult to [employer] Routine Comment: Discharge provider: Federica Orellana DO Summary Hospital Course Date Patient Seen: 03/17/25 Time Patient Seen: 13:00 Diagnoses: Uncomplicated vaginal delivery Hospital Course: Patient is a 29yo G5 now P2032 presented to L&D at 38wks for testing. NST was nonreassuring and decision was made to proceed with delivery. Patient had an uncomplicated induction course and proceeded to an uncomplicated . Uncomplicated course and baby healthy in room. discharged home on day 1 with baby to home. Discharged home with instructions to continue lovenox 40mg SQ daily until 6wks due to diagnosis of antiphospholipid syndrome. Peripartum Data Infant Delivery Method: Natural Vaginal Laceration Description: Perineal - 1st Degree complications: none Status at Discharge Cognitive/behavioral status at discharge: oriented Functional status at discharge: independent ambulation Overall status at discharge: patient is back to baseline Time Spent with Patient Time attestation: Total time spent providing and/or coordinating discharge services: Time spent: Less than 30 minutes Objective Labs 03/16/25 13:00 Exam Narrative Exam Narrative: General - AAOx 3, NAD fundus firm at umbilicus minimal lochia LE- trace edema Discharge Plan Discharge Plan Patient Disposition: Home Discharge orders & Medications Prescriptions: Continued levothyroxine [Euthyrox] 50 mcg tablet 50 mcg PO DAILY Qty: 30 6RF levothyroxine 25 mcg tablet 25 mcg PO DAILY Qty: 90 0RF ondansetron 4 mg tablet,disintegrating 4 mg PO Q6H PRN (Reason: nausea and vomiting) Qty: 20 1RF prenat.vits,rom,[id number] Tablet 1 tab PO DAILY sertraline 100 mg tablet 100 mg PO DAILY RSVPreF3 antigen-AS01E (PF) 120 mcg/0.5 mL suspension for reconstitution 0.5 ml IM ONCE Qty: 1 0RF Discontinued heparin (porcine) 5,000 unit/mL solution 5,000 unit SUBCUT Q12H 30 Days Qty: 25 1RF Follow up/Referrals: Charlene Dorman ARNP [Primary Care Provider, Nursing] Diet/Activity/Treatments Diet: Regular Activity: pelvic rest x 6 weeks Skin/Wound/Dressing Care Report to your healthcare provider any signs of infection, such as:: chills, fever, increased pain, unusual drainage and unusual redness Discharge Data Primary Care Provider: Charlene Dorman
[2025-03-17 19:47] VITALS: BP 120/75; PULSE 67; RESP 16; TEMP 37
== END 2025-03-17 19:47 | disposition home or self-care (01) | DRG 806 ==
PROVIDERS: Nurse Anesthetist, Certified Registered; Admitting Provider Obstetrics & Gynecology; PCP Nurse Practitioner Family; Referring Provider Obstetrics & Gynecology; Visit Provider Obstetrics & Gynecology
DX: O99.12 Other diseases of the blood and blood-forming organs and certain disorders involving the immune mechanism complicating childbirth (principal); D68.61 Antiphospholipid syndrome; Z37.0 Single live birth; O99.344 Other mental disorders complicating childbirth; F41.9 Anxiety disorder, unspecified; F32.A Depression, unspecified; Z3A.38 38 weeks gestation of pregnancy; O76 Abnormality in fetal heart rate and rhythm complicating labor and delivery; O70.0 First degree perineal laceration during delivery; O43.193 Other malformation of placenta, third trimester; Z28.39 Other underimmunization status; Z79.01 Long term (current) use of anticoagulants
CPT/HCPCS: 36415; 59050; 59400; 59409; 85025; 85730; 86850; 86900; 86901; G0379; J1200; J2405; J2590

== ENCOUNTER → 2025-05-28 15:46 | Outpatient (CLI) | payer BC, SELFPAY ==
[2025-05-28 18:44] LABS: Free T4, Direct Thyroxine 0.90 ng/dL (0.78-2.19)
[2025-05-28 18:58] LABS: Thyroid Stimulating Hormone 0.866 uIU/mL (0.47-4.68)
== END ==
PROVIDERS: PCP Nurse Practitioner Family; Referring Provider Obstetrics & Gynecology; Visit Provider Obstetrics & Gynecology
DX: E03.9 Hypothyroidism, unspecified (principal); E28.2 Polycystic ovarian syndrome
CPT/HCPCS: 36415; 84439; 84443